=== PATIENT | female | born 1970 | race Caucasian/White ===

== ENCOUNTER 2017-05-21 22:55 | Emergency (ER) | payer OTHER ==
[~2017-05-21] VITALS: Ht 160 cm; Wt 98.8 kg
[~2017-05-21 22:55] MED LIST: ADVIL MIGRAINE200 MG PO; PEPCID20 MG PO; SIMVASTATIN20 MG PO; SYNTHROID125 MCG PO; VITAMIN C500 M1 PO
[2017-05-21 23:19] LABS: HEMATOCRIT 43.3 % (36.0-46.0); MCHC 33.5 G/DL (30.0-36.0); MCV 92.5 FL (83-99); MEAN PLAT.VOLUME 9.5 uM^3 (9.5-12.4); PLATELET COUNT 277 K/uL (156-360); RBC DIS.WIDTH-CV 13.1 % (11.8-14.6); RBC DIS.WIDTH-SD 44.1 % (39-53); RED BLOOD COUNT 4.68 M/uL (3.80-5.20); WHITE BLOOD COUNT 15.6 K/uL (4.1-10.2)
[2017-05-21 23:30] LABS: CHLORIDE 107 mEq/L (99-109); POTASSIUM 3.7 mEq/L (3.7-5.4); SODIUM 144 mEq/L (136-147)
[2017-05-21 23:32] LABS: GLUCOSE 112 mg/dL (70-99)
[2017-05-21 23:33] LABS: ANION GAP 8 MEQ/L (2-14)
[2017-05-21 23:34] LABS: TOTAL BILIRUBIN 0.2 mg/dL (0.0-1.0)
[2017-05-21 23:36] LABS: ALKALINE PHOSPHATASE 60 IU/L (3-129); GFR ESTIMATE (CALCULATED) > 59 mL/min/
[2017-05-21 23:37] LABS: UREA NITROGEN (BUN) 13 mg/dL (9-23)
[2017-05-21 23:45] LABS: QUANTITATIVE HCG < 4.0 MIU/ML
[2017-05-22 00:07] LABS: LIPASE 21 U/L (1.0-51.0)
[2017-05-22 01:17] LABS: ADD MIUA? YES; COLOR RED ((YELLOW))
[2017-05-22 01:18] LABS: BILIRUBIN NEGATIVE; BLOOD LARGE; GLUCOSE (STRIP) NEGATIVE; KETONES NEGATIVE; LEUKOCYTES TRACE; NITRITE NEGATIVE; PH, URINE 6.5 (5-8); PROTEIN (STRIP) 300; SPECIFIC GRAVITY 1.025 (1.000-1.030); UROBILINOGEN 0.2 MG/DL (0.2-1.0)
[2017-05-22 01:19] LABS: RED BLOOD CELLS TNTC /HPF (0-5); UCUL ADDED? YES
[2017-05-22] MEDS ORDERED: CIPRO500 MG PO (02:48)
[2017-05-22 03:09] LABS: PROTHROMBIN TIME 10.5 SEC (10.2-12.9)
[2017-05-22 03:12] LABS: PTT 33.7 SEC (25-37)
[2017-05-22 03:22] VITALS: BP 142/64
== END 2017-05-22 03:23 | disposition home or self-care (01) ==
LOC: EME 22:55
DX: N30.01 Acute cystitis with hematuria (principal); R19.5 Other fecal abnormalities
CPT/HCPCS: 74176; 80053; 81003; 83690; 84702; 85027; 85610; 85730; 87077; 87086; 87186; 99281; 99284

== ENCOUNTER → 2017-11-25 | Outpatient (CLI) | payer OTHER ==
[~2017-11-25] MED LIST changes: +CIPRO500 MG PO
== END | disposition home or self-care (01) ==
LOC: RES 09:35
DX: J98.8 Other specified respiratory disorders (principal); J98.09 Other diseases of bronchus, not elsewhere classified; R05 Cough
CPT/HCPCS: 94070; 94726; 94729